=== PATIENT | female | born 1975 | race Caucasian/White ===

== ENCOUNTER 2017-09-05 11:06 | Emergency (ER) | payer OTHER ==
[~2017-09-05] VITALS: Ht 172.7 cm; Wt 88.1 kg
[~2017-09-05 11:06] MED LIST: ALEVE220 MG PO; ERGOCALCIF50000 UNIT PO; HYDROCODON-ACE1 EAC7 PO; MULTIPLE VITAM1 EACH PO; ZOFRAN ODT4 MG PO
[2017-09-05] MEDS ORDERED: NAPROXEN500 MG PO (13:32)
[2017-09-05] MEDS ORDERED: FLEXERIL10 MG PO (13:32)
[2017-09-05 13:48] VITALS: BP 118/49
== END 2017-09-05 13:49 | disposition home or self-care (01) ==
LOC: EME 11:06
PROC: 3E0234Z Introduction of Serum, Toxoid and Vaccine into Muscle, Percutaneous Approach (ICD-10-PCS; principal; 2017-09-05)
DX: S80.11XA Contusion of right lower leg, initial encounter (principal); S80.212A Abrasion, left knee, initial encounter; R51 Headache; M54.2 Cervicalgia; T23.401A Corrosion of unspecified degree of right hand, unspecified site, initial encounter; T32.0 Corrosions involving less than 10% of body surface; V43.52XA Car driver injured in collision with other type car in traffic accident, initial encounter; W22.10XA Striking against or struck by unspecified automobile airbag, initial encounter; Y92.410 Unspecified street and highway as the place of occurrence of the external cause; Z23 Encounter for immunization
CPT/HCPCS: 73564; 73590; 99281; 99283; J1885